=== PATIENT | female | born 1990 | race Caucasian/White ===

== ENCOUNTER 2021-04-13 05:03 | Inpatient (IN) | payer BC, MEDICAID, SELFPAY ==
[2021-04-13] VITALS (134 sets, daily range): BP systolic 83–126; BP diastolic 46–79; PULSE 78–133; RESP 18; TEMP 36.4–36.9; O2SAT 98–100; BMI 26.9
[2021-04-13 05:43] LABS: Basophils Percent Auto 0.2 % (0.2-1.2); Eosinophils Absolute Auto 0.1 K/mm3 (0-0.3); Hematocrit 34.2 % (37.0-47.0); Hemoglobin 11.2 g/dL (12.0-15.0); Immature Granulocyte Absolute 0.07 K/mm3 (0.00-0.031); Immature Granulocyte Percent A 0.9 % (0-0.5); Lymphocytes Absolute Auto 1.53 K/mm3 (0.9-3.2); Lymphocytes Percent Auto 18.8 % (18.3-44.2); Mean Corpuscular HGB Conc 32.7 g/dl (32-36); Mean Corpuscular Hemoglobin 29.4 pg (26-34); Mean Corpuscular Volume 89.8 fl (80-100); Mean Platelet Volume 10.5 fl (7.4-10.4); Monocytes Absolute Auto 0.7 K/mm3 (0.1-0.6); Monocytes Percent Auto 8.5 % (2.6-8.5); Neutrophils Absolute Auto 5.8 K/mm3 (1.3-6.7); Neutrophils Percent Auto 70.6 % (45.5-73.1); Platelet Count Result 209 k/mm3 (150-375); Red Blood Count 3.81 M/mm3 (4.2-5.4); Red Cell Distribution Width 14.5 % (11.5-14.5); White Blood Count 8.2 K/mm3 (4.5-10.0)
[2021-04-13] MEDS: OXYTOCIN 30 UNITS/NS 500 ML 30 UNITS/500 ML BAG IV CONT (05:56)
--- NOTE | 2021-04-13 06:00 | LDADM ---
This patient, Inessa Momin, was admitted to Labor/Delivery/Recovery 107 on 04/13/21 at 05:03. Plans for labor, pain management and were discussed with patient. Patient/family oriented to hospital policies and general routines including ID bracelet, bed and alarms, visiting hours, pain management, procedures, bathroom and other care routines, personal items, smoking policy, room service/diet and guest tray routines, infant security routines, and visiting hours. Patient/Family are encouraged to report perceived risks to care and to ask questions if they do not understand what they are told or what they should do. See OBIX for further documentation.
--- NOTE | 2021-04-13 06:15 | PM.IMHP ---
H&P: HPI History of Present Illness Date/Time: 04/13/21 06:15 30-year-old 4 para 3 admitted with an EDC of 2922 presents at 39 weeks gestation for induction of labor cervix favorable the been uncomplicated she is negative for group B strep Chief Complaint: induction of labor Review of Systems Review of Systems: All systems reviewed & are unremarkable except as noted in HPI and below PMFSH Family History Family History Father Stomach cancer Mother Muscular dystrophy Sibling Muscular dystrophy Bipolar 2 disorder Son Muscular dystrophy Other Patient's father is Social History Social History Smoking status: Never smoker Substance use: never Spiritual care concerns: No Meds Home Medications and Allergies Home Medications Medication Instructions Recorded Confirmed Type vit no.[id number] 1 tablet PO DAILY 04/13/21 04/13/21 History [Classic ] ranitidine HCl [Zantac] 150 mg PO PRN PRN 04/13/21 04/13/21 History Allergies Allergy/AdvReac Type Severity Reaction Status Date / Time sulfamethoxazole Allergy Mild RASH Verified 06/26/16 13:44 trimethoprim Allergy Mild RASH Verified 06/26/16 13:44 BUPROPION HCL Allergy Severe SEIZURES Uncoded 06/26/16 13:44 Vital Signs Vital Signs - 24 hr 04/13/21 06:08 Pulse Rate 108 H Blood Pressure 111/73 Exam Const: General: no acute distress Eyes: General: appearance normal, both eyes and all related structures Neck: Neck: supple and no JVD Thyroid: thyroid normal Resp: Effort & Inspection: normal respiratory effort Auscultation: clear to auscultation bilaterally Cardio: Rate: regular rate Rhythm: regular rhythm GI: Inspection: non-distended GI Palp: Yes Soft to palpation, No Tenderness to palpation present (GI) and No Guarding due to palpation present (GI) Auscultation: normal bowel sounds : External Female Exam: normal external appearance Speculum Exam - Vagina: normal appearance of the vagina Speculum Exam - Cervix: Cervical os closed ( cervix 3/80/1. AROM clear. FHTs reassuring) Skin: General skin exam: no rashes or lesions noted Extrem: General: normal to inspection and no edema Psych: Mental Status: mental status grossly normal Affect: normal affect H&P: Results Labs Labs: Short CBC 04/13/21 Range/Units 05:35 WBC 8.2 (4.5-10.0) K/mm3 Hgb 11.2 L (12.0-15.0) g/dL Hct 34.2 L (37.0-47.0) % Plt Count 209 (150-375) k/mm3 Assessment and Plan Additional Plan impression: Term with favorable cervix Plan: Medical induction of labor. Spontaneous vaginally delivery is expected
--- NOTE | 2021-04-13 06:23 | WPDANESEPP ---
Anes - Eval Pre Procedure Procedure: Labor epidural Date/Time: 04/13/21 06:23 Surgeon: Denise Preop Diagnosis: Abd pain with contractions Pre Op Diagnosis: IOL Patient Data Age: 30 Gender: F Height: 1.68 m Weight: 75.5 kg Last Vital Signs Pulse 99 04/13/21 06:16 BP 109/76 04/13/21 06:16 Allergies Allergy/AdvReac Type Severity Reaction Status Date / Time sulfamethoxazole Allergy Mild RASH Verified 06/26/16 13:44 trimethoprim Allergy Mild RASH Verified 06/26/16 13:44 BUPROPION HCL Allergy Severe SEIZURES Uncoded 06/26/16 13:44 Home Medications Medication Instructions Recorded Confirmed Type vit no.[id number] 1 tablet PO DAILY 04/13/21 04/13/21 History [Classic ] ranitidine HCl [Zantac] 150 mg PO PRN PRN 04/13/21 04/13/21 History Laboratory Tests 04/13/21 04/13/21 05:35 05:35 WBC 8.2 K/mm3 K/mm3 (4.5-10.0) RBC 3.81 M/mm3 L M/mm3 (4.2-5.4) Hgb 11.2 g/dL L g/dL (12.0-15.0) Hct 34.2 % L % (37.0-47.0) MCV 89.8 fl fl (80-100) MCH 29.4 pg pg (26-34) MCHC 32.7 g/dl g/dl (32-36) RDW 14.5 % % (11.5-14.5) Plt Count 209 k/mm3 k/mm3 (150-375) MPV 10.5 fl H fl (7.4-10.4) Immature Gran % (Auto) 0.9 % H % (0-0.5) Neut % (Auto) 70.6 % % (45.5-73.1) Lymph % (Auto) 18.8 % % (18.3-44.2) [place] % (Auto) 8.5 % % (2.6-8.5) Eos % (Auto) 1.0 % % (0-4.4) Baso % (Auto) 0.2 % % (0.2-1.2) Lymph # (Auto) 1.53 K/mm3 K/mm3 (0.9-3.2) [place] # (Auto) 0.7 K/mm3 H K/mm3 (0.1-0.6) Eos # (Auto) 0.1 K/mm3 K/mm3 (0-0.3) Baso # (Auto) 0.0 K/mm3 K/mm3 (0.0-0.1) Abs Immat Gran (auto) 0.07 K/mm3 H K/mm3 (0.00-0.031) Absolute Neuts (auto) 5.8 K/mm3 K/mm3 (1.3-6.7) Absolute Nucleated RBC 0.0 K/mm3 K/mm3 (0.0-0.012) Nucleated RBC % 0.0 % % (0.0-0.2) RPR Pending Patient hx anesthesia problems: none Family hx anesthesia problems: none Results Review: All pre-operative results and documents have been reviewed as part of the pre-operative evaluation. [facility] Past Medical History Medical History Anxiety and depression Epilepsy Muscular dystrophy Overweight (BMI 25.0-29.9) and not yet delivered Family History Family History Father Stomach cancer Mother Muscular dystrophy Sibling Muscular dystrophy Bipolar 2 disorder Son Muscular dystrophy Other Patient's father is Social History Social History Smoking status: Never smoker Substance use: never Spiritual care concerns: No Exam Day of Procedure 04/13/21 06:23 Patient weight: overweight Airway: Mallampati scale class II Neurological: alert and oriented
[2021-04-13] MEDS: LACTATED RINGERS 1,000 ML 125 ML IV CONT ×2 (09:50→13:15)
--- NOTE | 2021-04-13 12:05 | PM.OBPNLAB ---
Pain Control Date/time seen: 04/13/21 12:05 cx 4 by rn exam fhts ok epidural in
--- NOTE | 2021-04-13 16:31 | PM.OBPRVD ---
OB - Delivery Note Procedure Delivery date: 04/13/21 Procedure: mil Intrapartal events: None Induction method: AROM Delivery augmentation: pitocin Delivery monitor: external FHT Route of delivery: Episiotomy description: None Laceration Description: None Specimen: No Quantitative Blood Loss (ml): 59 Anesthesia type: Epidural Disposition: floor Baby Date of : 04/13/21 Time of : 16:13 Weeks of gestation at delivery: 39 Weight (pounds): 9 Weight (ounces): 12 position: Right Occiput Anterior Placenta delivery description: Spontaneous cord vessel description: 3 Vessels, Nuchal Cord and Loose score one minute: 8 score five minutes: 9
[2021-04-13] MEDS: OXYTOCIN 30 UNITS/NS 500 ML 30 UNITS/500 ML BAG 125 UNITS IV CONT (16:35)
[2021-04-13] MEDS: ACETAMINOPHEN 325 MG TABLET 650 MG PO (16:51)
[2021-04-13] MEDS: WITCH HAZEL 40 PADS 1 PAD TOPICAL (19:22)
[2021-04-13] MEDS: BENZOCAINE 20% AER SPR (*SP) 56 GM CAN 1 SPRAY TOPICAL (19:22)
[2021-04-13] MEDS: IBUPROFEN 600 MG TABLET PO (21:25)
[2021-04-14] MEDS: ACETAMINOPHEN 325 MG TABLET 650 MG PO ×2 (01:33→09:16)
[2021-04-14 04:58] LABS: Hematocrit 31.3 % (37.0-47.0); Hemoglobin 10.4 g/dL (12.0-15.0)
[2021-04-14 05:19] VITALS: BP 118/69; PULSE 68; RESP 18; TEMP 35.8; O2SAT 100
--- NOTE | 2021-04-14 05:50 | PM.OBPNVD ---
OB - PN: Subj Subjective Date/time seen: 04/14/21 05:50 Patient comments: no complaints and pain well controlled baby status: doing well and nursing well OB - PN: Obj Data Labs CBC & Chem 7: 04/14/21 04:24 Labs: Laboratory Results - last 24 hr 04/13/21 04/14/21 05:35 04:24 Hgb 10.4 L Hct 31.3 L Blood Type O Positive Antibody Screen Negative OB - PN A/P Plan day: 1 Plan: routine care Time Spent With Patient Time: Total time spent is greater than 50% in coordination of care (as documented) at patient's floor/unit and/or counseling patient: Time with patient: less than 15 minutes Review of Systems Review of Systems: All systems reviewed & are unremarkable except as noted in HPI and below Exam Const: General: no acute distress Eyes: General: appearance normal, both eyes and all related structures Neck: Neck: supple and no JVD Thyroid: thyroid normal Resp: Effort & Inspection: normal respiratory effort Auscultation: clear to auscultation bilaterally Cardio: Rate: regular rate Rhythm: regular rhythm GI: Inspection: non-distended GI Palp: Yes Soft to palpation, No Tenderness to palpation present (GI) and No Guarding due to palpation present (GI) Auscultation: normal bowel sounds : General: Yes bladder normal to palpation External Female Exam: normal external appearance Speculum Exam - Vagina: normal vaginal discharge and No vaginal bleeding Speculum Exam - Cervix: nontender Bimanual exam- vagina & uterus: bladder normal to palpation and No Cervical tenderness present OB/external & speculum: No vaginal bleeding Skin: General skin exam: no rashes or lesions noted Extrem: General: normal to inspection and no edema Psych: Mental Status: mental status grossly normal Affect: normal affect
[2021-04-14 05:55] LABS: Rapid Plasma Reagin Non-Reactive (NonReactive)
--- NOTE | 2021-04-14 07:41 | WPDANLDPN2 ---
Anes-Prog Note L&D Date/Time: 04/14/21 07:41 Comfortable throughout: labor and delivery Neuraxial method: epidural Epidural/Spinal procedure site: clean & non-tender Neuro status: Neuro function grossly intact. Cardiovascular status: normal Respiratory status: normal Airway patency: baseline Mental status: baseline Post-Op hydration status: normal Vital Signs: Last Vital Signs Temp 35.8 C L 04/14/21 05:19 Pulse 68 04/14/21 05:19 Resp 18 04/14/21 05:19 BP 118/69 04/14/21 05:19 Pulse Ox 100 04/14/21 05:19 Pain score (VAS): 0 I/O: Intake & Output 04/13/21 04/13/21 04/14/21 15:59 23:59 07:59 Intake Total 1000 Output Total 288 Balance 1000 -288 Post-procedural complaints: none Patient feedback: Patient satisfied with anesthetic care.
[2021-04-14 08:20] VITALS: BP 112/74; PULSE 84; RESP 18; TEMP 36.5; O2SAT 100
--- NOTE | 2021-04-14 09:15 | PC.NURSE ---
PT introductions made and plan of care discussed per post , pain management, breast feeding, daily care activities. PT oriented to room and surrounding area. PT and significant other both recipients of instructions and no barriers to learning identified at this time. PT received instructions this shift via one to one discussion, mom baby care guide and demonstrations. Oriented to unit, room, information board, rooming in, admission packet and security measures. Patient verbalizes understanding.
[2021-04-14 09:16] VITALS: PULSE 84; RESP 18; O2SAT 100
[2021-04-14] MEDS: IBUPROFEN 600 MG TABLET PO (09:16)
[2021-04-14] MEDS: MULTIVIT/MIN/PREN/FOL AC/IRON TABLET 1 TAB PO (09:17)
[2021-04-14] MEDS: DOCUSATE SODIUM 100 MG CAPSULE PO ×2 (09:17→09:20)
[2021-04-14] MEDS: LANOLIN (LANSINOH) 7.5 GM CREAM 1 APPLIC TOPICAL (09:18)
[2021-04-14 11:46] VITALS: BP 93/55; PULSE 77; RESP 18; TEMP 36.5; O2SAT 100
[2021-04-14 20:15] VITALS: BP 108/72; PULSE 81; RESP 18; TEMP 36.6; O2SAT 100
[2021-04-15] MEDS: ACETAMINOPHEN 325 MG TABLET 650 MG PO (04:25)
[2021-04-15] MEDS: IBUPROFEN 600 MG TABLET PO (04:25)
--- NOTE | 2021-04-15 06:53 | PM.DS ---
DS: Admitting Diagnosis Discharge Date 04/15/2021 Admitting Diagnosis Term with favorable cervix DS: Summary Hospital Course Hospital Course: successful mil. unremarkable course. Baby was transferred secondary to respiratory difficulty. Time Spent with Patient Time attestation: Total time spent providing and/or coordinating discharge services: Exam Const: General: no acute distress Eyes: General: appearance normal, both eyes and all related structures Neck: Neck: supple and no JVD Thyroid: thyroid normal Resp: Effort & Inspection: normal respiratory effort Auscultation: clear to auscultation bilaterally Cardio: Rate: regular rate Rhythm: regular rhythm GI: Inspection: non-distended GI Palp: Yes Soft to palpation, No Tenderness to palpation present (GI) and No Guarding due to palpation present (GI) Auscultation: normal bowel sounds : General: Yes bladder normal to palpation External Female Exam: normal external appearance Speculum Exam - Vagina: normal vaginal discharge and No vaginal bleeding Speculum Exam - Cervix: nontender Bimanual exam- vagina & uterus: bladder normal to palpation and No Cervical tenderness present OB/external & speculum: No vaginal bleeding Skin: General skin exam: no rashes or lesions noted Extrem: General: normal to inspection and no edema Psych: Mental Status: mental status grossly normal Affect: normal affect Discharge Plan Discharge Attending physician on discharge: Russel Carlson Discharging Clinician: Russel Carlson Patient Disposition: Home, Self-Care Activity: may shower and may drive after 2 weeks Diet: regular Discharge Instructions: Education: Mom and Baby Guide Given to: mother Follow-Up: Call your delivering provider's office for an appointment to be seen in: 2 weeks Mom and baby should come to the [facility] for the follow-up appointment. Appointment Date/Time: 04/18/21 at 8a.m. What to expect at your follow-up visit: BP check Call [phone] if you are unable to keep your appointment time. BREAST CARE: * Wear a snug supportive bra. * For engorgement discomfort: Breast Feeding: * Apply warm moist washcloths * Express milk as needed to relieve engorgement * Wear loose clothing Bottle Feeding: * May apply ice packs * For sore nipples: * Identify correct latch-on * Apply warm moist washcloths before and after nursing * Air dry nipples after nursing * May apply Lansinoh cream to nipples EPISIOTOMY/PERINEAL CARE: * Until bleeding stops, use your tomi bottle after urinating * Change your pad frequently throughout the day * You may take sitz baths several times a day (fill your bathtub with warm water and soak for 20 minutes.) Do NOT bathe in the water * No tub baths until seen by your physician - You may shower ACTIVITY: * Rest as much as possible. * Do not exercise or lift anything heavier than your baby (such as laundry or other children.) * Avoid stairs or driving as much as possible. * Do not put anything into the vagina. No douching, tampons, or sexual activity until seen by physician. NOTIFY PHYSICIAN IF YOU HAVE ANY QUESTIONS OR IF ANY OF THE FOLLOWING SYMPTOMS OCCUR: * If your episiotomy or incision becomes red, swollen, or more painful than what you have experienced in the hospital. * If your vaginal bleeding becomes foul smelling. * If your vaginal bleeding becomes more heavy than a period or if your bleeding changes from pink to bright red. However, you may pass an occasional walnut-sized clot once or twice for the first week . * If you experience a sharp, shooting pain in you calves. * If you discover a hard, reddened area on your breast or if you experience flu-like symptoms. DIET: * Eat regular, well-balanced meals. * Drink plenty of fluids daily. If , drink to thirst. Stand Alone Forms: Gene
--- NOTE | 2021-04-15 07:23 | PC.NURSE ---
0715 - Introductions were made and mother led the conversation with regards to her experience feeding her baby so far. was transferred to [facility] early this morning. Mother verbalizes understanding that her cracked nipple is related to baby not latching optimally. She believes it is because the infant was not feeling well. Reminded parents to use good handwashing to prevent infection. Mother states she feels confident to continue /pumping for her infant at home after he is well. Reviewed production of human milk, transition of milk, signs of adequate intake and engorgement prevention/relief and when to call the provider using the mom and baby guide. Reminded mother of the art of hand expression (she verbalizes understanding) frequency of pumping and the importance of pumping until it feels like all of the milk is out once the full milk comes in. Reviewed warm, wet compress to the nipple with air drying for nipple comfort, community resources and outpatient services as listed in the mom and baby guide/[facility] website. Reinforced watching for feeding cues with responsive feeding and how to stimulate infant to initiate feeding three hours from the start of the last feeding. Encouraged mother to seek out a LC at [facility] for support. Mother voiced understanding of information shared. Reported to primary RN.
== END 2021-04-15 07:33 | disposition home or self-care (01) | DRG 807 ==
LOC: ANHLDR 05:09 → ANHOB2 19:57
PROVIDERS: Admitting Provider Obstetrics & Gynecology; PCP Family Medicine; Visit Provider Obstetrics & Gynecology
DX: O69.81X0 Labor and delivery complicated by cord around neck, without compression, not applicable or unspecified (principal); Z37.0 Single live birth; Z3A.39 39 weeks gestation of pregnancy
CPT/HCPCS: 36415; 85014; 85018; 85025; 86592; 86850; 86900; 86901; A9270; J2590; J2795; J7120